=== PATIENT | male | born 1990 | race Hispanic/Latino ===

== ENCOUNTER 2018-05-09 11:42 | Emergency (ER) | payer SELFPAY ==
[~2018-05-09] VITALS: Ht 177.8 cm; Wt 81.8 kg
[~2018-05-09 11:42] MED LIST: FLUARIX QUADRIV1 INJ IM; MECLIZINE25 MG OR; MEDDOSEPAK PO; NAPROSYN500 MG OR; NAPROSYN500 MG PO; NO HOME MEDS; PENICILLN VK500 MG PO; TYLENOL # 31 TA1 PO; ULTRAM50 MG PO
[2018-05-09 12:27] LABS: HEMATOCRIT 46.9 % (39.0-50.0); HEMOGLOBIN 16.3 g/dl (14.0-18.0); IMMATURE GRANULOCYTES 0.5 % (0.0-5.0); MEAN CELL VOLUME 86.7 fL CALC (80.0-100.0); MEAN CORPUSCULAR HGB 30.1 pG CALC (26.0-32.0); MEAN CORPUSCULAR HGB CONC 34.8 g/L CALC (32.0-36.0); NEUT# 10.37 thou/uL (1.82-7.42); RED BLOOD COUNT 5.41 mill/uL (4.70-6.10); RED CELL DISTRI WIDTH 12.7 % (11.5-15.5)
[2018-05-09 12:46] LABS: ANION GAP 18 (6-22 (CALC)); BUN 8 mg/dL (9-20); BUN/CREATININE RATIO 11 (12-20 (CALC)); CARBON DIOXIDE 23 mmol/l (22-30); CHLORIDE 103 mmol/l (95-108); CREATININE 0.7 mg/dL (0.7-1.3); GFR > 60 ML/MIN (>=60 (CALC)); GFR FOR AFR.AMER. > 60 ML/MIN (>=60 (CALC)); POTASSIUM 3.9 mmol/l (3.5-5.1); SODIUM 140 mmol/l (137-146)
[2018-05-09] MEDS ORDERED: BACTRIM DS1 TAB PO (14:21)
[2018-05-09] MEDS ORDERED: AUGMENTIN875TAB PO (14:21)
[2018-05-09 14:40] VITALS: BP 119/60
== END 2018-05-09 14:40 | disposition left against medical advice (07) | DRG 603 ==
LOC: ED 11:42
PROVIDERS: Family Medicine
DX: L03.211 Cellulitis of face (principal); R25.2 Cramp and spasm; Z91.19 Patient's noncompliance with other medical treatment and regimen
CPT/HCPCS: Q9967

== ENCOUNTER 2018-05-10 11:29 | Emergency (ER) | payer SELFPAY ==
[~2018-05-10 11:29] MED LIST changes: +AUGMENTIN875TAB PO; +BACTRIM DS1 TAB PO
== END 2018-05-10 12:05 | disposition left against medical advice (07) | DRG 951 ==
LOC: ED 11:29 → LWOBS 12:05
DX: Z91.19 Patient's noncompliance with other medical treatment and regimen (principal)